=== PATIENT | female | born 1935 | race Caucasian/White ===

== ENCOUNTER 2019-12-08 17:20 | Emergency (ER) | payer MEDICARE, OTHER ==
[~2019-12-08 17:20] MED LIST: Iopamidol-370 76% 500 ML 1 ML ONE
[2019-12-08 17:40] LABS: #Lymphocytes 0.9 thou/uL (1.20-3.40); #Monocytes 0.7 thou/uL (0.11-0.59); #Neutrophils 11.3 thou/uL (1.40-6.50); %Basophils 0.2 % (0.0-1.0); %Eosinophils 0.4 % (0.0-10.0); %Lymphocytes 6.9 % (21.0-51.0); %Monocytes 5.7 % (0.0-10.0); %Neutrophils 86.8 % (42.0-75.0); Hemoglobin 13.4 g/dL (12.0-16.0); Mean Corpuscular HGB CONC 32.6 g/dL (32.0-36.0); Mean Corpuscular Hemoglobin 29.2 pg (27.0-31.0); Mean Corpuscular Volume 89.6 fL (78.0-98.0); Mean Platelet Volume 7.2 fL (7.4-10.4); Platelet Count 405 thou/uL (130-400); RBC Distribution Width 12.5 % (11.5-14.5); Red Blood Cell (RBC) Count 4.57 mill/uL (4.20-5.40)
[2019-12-08 17:46] LABS: INR-International Normal Ratio 1.2; PTT 25.1 sec (22.9-36.1); Prothrombin Time 14.7 sec (12.0-14.7)
--- NOTE | 2019-12-08 17:55 | CT ---
CT BRAIN WITHOUT CONTRAST: 12/08/19 HISTORY: Aphasia, right sided weakness, left sided gaze deviation. COMPARISON: Comparison is made with exam of 08/12/2011. FINDINGS: There is subtle hypodensity in the left insula and the left occipital lobe. No hemorrhage, midline sh ift, or abnormal extra-axial fluid collections are seen. The ventricular size is appropriate and the basilar cisterns patent. The bony calvarium is intact. There is mild mucosal disease in the paranasal sinuses. IMPRESSION: Findings are suspicious for acute infarction in the left insula and the left occipital lobe. Discussed over the telephone with ER physician Dr. Carlos Ogden at 5:31 p.m. POS: SHU
[2019-12-08 17:57] LABS: ALT (SGPT) Less than 7 U/L (8-55); AST (SGOT) 15 U/L (5-34); Albumin 3.7 g/dL (3.4-4.8); Alkaline Phosphatase 79 U/L (40-110); Anion Gap 17 mmol/L (10-20); BUN (Urea Nitrogen) 10 mg/dL (9.8-20.1); CK (CPK) 30 U/L (29-168); Calc. Creatinine Clearance 0 mL/min (70-130); Calcium 8.9 mg/dL (7.8-10.44); Carbon Dioxide 18 mmol/L (23-31); Chloride 107 mmol/L (98-107); Estimated GFR-MDRD 48; Globulin 2.4 g/dL (2.4-3.5); Glucose 175 mg/dL (83-110); Lipase 28 U/L (8-78); Magnesium 1.9 mg/dL (1.6-2.6); Potassium 4.1 mmol/L (3.5-5.1); Protein, Total 6.1 g/dL (6.0-8.3); Sodium 138 mmol/L (136-145)
--- NOTE | 2019-12-08 18:02 | CT ---
CT angiogram head CT angiogram neck: 12/08/2019 COMPARISON: None HISTORY: Altered mental status, dementia, aphasia TECHNIQUE: Axial CT imaging obtained at 1.25 mm intervals from the lung apices through the vertex wit h IV contrast. Coronal and sagittal 3-D reformatted imaging obtained FINDINGS: The visualized lung apices appear unremarkable. The paranasal sinuses and mastoid air cells demonstrate wall thickening and partial opacification of the left sphenoid sinus suggesting chronic sinusitis. The retroantral fat and the parapharyngeal fat appears clear bilaterally. The parotid glands and the submandibular glands appear grossly unremar kable. Multiple hypodense nodules are noted within the thyroid gland measuring up to 1.5 cm. Follow-up thyroid ultrasound suggested. Tonsillar pillars, epiglottis and preepiglottic fat, hyoid bone, thyroid cartilage, cricoid cartilage , and level of the glottis appear unremarkable. The origin of the innominate artery, right subclavian artery, right common carotid artery, left commo n carotid artery, and left subclavian artery appears unremarkable. There is a focal area of high-grade stenosis at the origin of the right vertebral artery. The right vertebral artery appears o therwise unremarkable. The left vertebral artery appears unremarkable. On the basis of NASCET criteria, there is no hemodynamically significant stenosis involving the commo n carotid artery on either side. There is a medialized course of the proximal right common carotid artery posterior to the trachea at the axial level of the thyroid gland. On the basis of NASCET criteria there is no hemodynamically significant stenosis involving the internal combustion engineer al carotid artery on either side. The mid and distal ICA appears tortuous bilaterally. The A1 segment, anterior communicating artery, and distal JORGE branches appear unremarkable bilaterall y. The M1 segment appears patent bilaterally. There is a focal area of M2 arterial occlusion within the anterior aspect of the sylvian fissure on the left, best appreciated on axial image 210, coronal image 40, and sagittal image 65. Distal MCA branches on the left appear otherwise unremarkable. Distal MCA branches on the right are g rossly unremarkable. The basilar artery and its branches appear patent with no posterior fossa/posterior circulation high-grade stenosis, vascular occlusion, or saccular aneurysm. The osseous structures demonstrate scattered areas of cervical spine degenerative change, most promin ent at C4-5. No worrisome lytic or blastic bone lesion. No lymphadenopathy is apparent within the neck. IMPRESSION: Left-sided proximal M2 arterial thrombus. Results called to Dr. Ogden at 5:55 PM 020
[2019-12-08] MEDS ORDERED: Aspirin 300 MG Suppository ONE (18:16)
--- NOTE | 2019-12-08 18:30 | RAD ---
PORTABLE CHEST ONE VIEW: 12/08/19 at 6:06 p.m. HISTORY: Stroke. FINDINGS: Comparison made with exam of 08/12/11. The heart size is borderline. The aorta is tortuous. No focal areas of consolidation, pneumothoraces or pleural effusions are seen. A hiatal hernia is again noted. IMPRESSION: No acute process. POS: ALDOA
--- NOTE | 2019-12-12 12:22 | EKG ---
Test Reason : Blood Pressure : / mmHG Vent. Rate : 074 BPM Atrial Rate : 074 BPM P-R Int : 240 ms QRS Dur : 084 ms QT Int : 440 ms P-R-T Axes : 050 -21 -64 degrees QTc Int : 488 ms Sinus rhythm with 1st degree A-V block Abnormal ECG Confirmed by HAZEL OSBORNE ([id number]), medical editor HIREN GUTIÉRREZ ([id number]) on 12/12/2019 12:21:39 PM Referred By: Confirmed By:HAZEL OSBORNE
--- NOTE | 2019-12-15 16:30 | CT ---
CT angiogram head CT angiogram neck: 12/08/2019 COMPARISON: None HISTORY: Altered mental status, dementia, aphasia TECHNIQUE: Axial CT imaging obtained at 1.25 mm intervals from the lung apices through the vertex wit h IV contrast. Coronal and sagittal 3-D reformatted imaging obtained FINDINGS: The visualized lung apices appear unremarkable. The paranasal sinuses and mastoid air cells demonstrate wall thickening and partial opacification of the left sphenoid sinus suggesting chronic sinusitis. The retroantral fat and the parapharyngeal fat appears clear bilaterally. The parotid glands and the submandibular glands appear grossly unremar kable. Multiple hypodense nodules are noted within the thyroid gland measuring up to 1.5 cm. Follow-up thyroid ultrasound suggested. Tonsillar pillars, epiglottis and preepiglottic fat, hyoid bone, thyroid cartilage, cricoid cartilage , and level of the glottis appear unremarkable. The origin of the innominate artery, right subclavian artery, right common carotid artery, left commo n carotid artery, and left subclavian artery appears unremarkable. There is a focal area of high-grade stenosis at the origin of the right vertebral artery. The right vertebral artery appears o therwise unremarkable. The left vertebral artery appears unremarkable. On the basis of NASCET criteria, there is no hemodynamically significant stenosis involving the commo n carotid artery on either side. There is a medialized course of the proximal right common carotid artery posterior to the trachea at the axial level of the thyroid gland. On the basis of NASCET criteria there is no hemodynamically significant stenosis involving the recruitment internship al carotid artery on either side. The mid and distal ICA appears tortuous bilaterally. The A1 segment, anterior communicating artery, and distal JORGE branches appear unremarkable bilaterall y. The M1 segment appears patent bilaterally. There is a focal area of M2 arterial occlusion within the anterior aspect of the sylvian fissure on the left, best appreciated on axial image 210, coronal image 40, and sagittal image 65. Distal MCA branches on the left appear otherwise unremarkable. Distal MCA branches on the right are g rossly unremarkable. The basilar artery and its branches appear patent with no posterior fossa/posterior circulation high-grade stenosis, vascular occlusion, or saccular aneurysm. The osseous structures demonstrate scattered areas of cervical spine degenerative change, most promin ent at C4-5. No worrisome lytic or blastic bone lesion. No lymphadenopathy is apparent within the neck. IMPRESSION: Left-sided proximal M2 arterial thrombus. Results called to Dr. Ogedn at 5:55 PM 020 Transcribed Date/Time: 12/15/2019 4:30 PM
== END 2019-12-08 17:52 | disposition short-term general hospital (02) ==
LOC: ERS 17:20
DX: I63.512 Cerebral infarction due to unspecified occlusion or stenosis of left middle cerebral artery (principal); E11.9 Type 2 diabetes mellitus without complications
CPT/HCPCS: 70450; 70496; 70498; 71045; 80053; 82550; 82553; 83690; 83735; 84484; 85025; 85610; 85730; 93005; Q9967

== ENCOUNTER 2020-05-13 11:56 | Inpatient (IN) | payer MEDICARE, OTHER ==
--- NOTE | 2020-05-13 14:13 | PDOC.FPRHP ---
- History of Present Illness Chief Complaint: fall History of Present Illness: This is an 85F transferred from [facility] after she fell at home. She lives with her and they have been without power since 05/11. They have been using their fireplace to stay warm. She got up to go to the bathroom but didn't take her flashlight and her found her on the ground at the opening of a hallway; he suspects she ran into the wall. She does not remember any of this. When her got to her she was trying to get up and stated her R shoulder hurt. He was not able to help her up and called EMS. When they arrived, she was found to be hypothermic with a T of 93.2F, hypotensive, tachycardic, and requiring CPap compared to her baseline of RA. At [facility], she was also found to have a WBC of 21 and LA of 7.3. Since she met SIRS criteria she was started on Rocephin and Azithromycin. CT head was neg, CXR neg, UA neg, so there is no clear source of infxn. On evaluation in this ED, she was found to be A&O x2, to self and date. She denies pain anywhere although she endorses and denies random sxs while her says she has not been complaining of anything lately. 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 Examples include asking about family members and not recognizing the house they have lived in for years. She has also been increasingly unsteady and had fallen 3 other times this week, although the pt denies feeling dizzy or off balance. After her stroke, she was receiving PT/OT/SKILL TRAINING PROGRAM COORDINATOR at home but that was d/c before [place] d/t the pt not wanting to participate anymore. She stopped taking a medication 2-3 weeks ago, that her thinks was a blood thinner b/c of her stroke, although he does not remember what it was called. She was found to have an indeterminate trop of 0.115. Denies CP/chest discomfort/SOB. EKG shows possible, age-indeterminate, inferior infarct but is otherwise normal. ED Course: [facility]: Levophed gtt, Rocephin, Azithro, Mg sulfate, ASA, duoneb, 2.5L NS bolus - History PMHx: T2DM, CVA in 11/2019 PSHx: appendectomy, hysterectomy, cholecystectomy Social: lives with . Smoked 1ppd x "a few years". Denies alcohol, drug use. - Review of Systems ROS unobtainable: due to mental status (Difficult to ascertain truth of endorsements and denials d/t mental status) - Vital signs BP: 95/59, MAP: 71, Pulse: 96, Resp: 18, Temp: 96.1 (Criticore Temp), Pain: 0, O2 sat: 98 on (2L Oxygen) - Physical Exam Constitutional: NAD -Constitutional: Awake, alert, oriented only to self and location. HEENT: normocephalic and atraumatic, PERRLA, EOMI, conjunctiva clear, grossly normal vision, grossly normal hearing -HEENT: Mucosa dry Neck: supple Chest: no-tender to palpation, no lesions Heart: RRR, normal S1/S2, no murmurs/rubs/gallops -Heart: Mildly pitting edema of BLE Lungs: CTAB, no respiratory distress, good air movement Abdomen: soft, non-tender, bowel sounds present Musculoskeletal: normal structure, normal tone, ROM grossly normal Neurological: no focal deficit, CN II-XII intact -Neurological: 5/5 strength of BUE and BLE Skin: no rash/lesions -Skin: No visible bruises/injuries to head, chest, abdomen, back, anterior legs, arms Heme/Lymphatic: no unusual bruising or bleeding, no purpura, no petechia Psychiatric: normal mood and affect FMR H&P: Results - Labs Lab results: WBC 21 LA 7.3 Trop 0.115 BUN 13, Cr 1.36, eGFR 40 - EKG Interpretation EKG: possible age-indeterminate inferior infarct, low QRS voltage, NSR - Radiology Interpretation CT scan - head Status: report reviewed by me (no acute intracranial findings) Chest x-ray Status: report reviewed by me (no acute cardiopulmonary changes) FMR H&P: A/P - Plan This is an 85F brought from [facility] for SIRS criteria Hypoxic resp failure, resolved Suspect 2/2 poor effort in setting of hypothermia - Required CPap for EMS. Now satting in 90s on RA - Baseline O2 requirement: RA - CXR neg, lungs clear on exam Hypothermia, resolved - T 93.2F at [facility] > 97F - s/p nura hugger, warm fluids, blankets SIRS criteria 2/2 hypothermia vs gastroenteritis Suspect the following were 2/2 hypothermia - Hypotensive, tachycardic, hypothermic on EMS arrival, resolved by arrival to this ED - s/p Levophed gtt, Mg sulfate, ASA, Rocephin, Azithro, 2.5L NS at [facility] * BCx ordered s/p first dose of abx - WBC 21 - LA 7.3 > repeat pending - CXR, CT head, UA neg - Has had multiple loose stools which could be a source of infxn * CDiff pathogen, E. coli and Campylobacter stool cultures, and stool O&P (given boil order throughout [facility]) pending - Continue Rocephin and Azithro pending r/o of infxn - mIVF: LR 130mL/h. Consider bolus if BPs soft - Procal pending Elevated trops - Trop 0.115 > repeat pending - EKG showed age-indeterminate possible inferior infarct > repeat pending - Pt denies sxs at this time - Cards, Robert, consulted - Suspect this is 2/2 demand from hypothermia/hypotension, therefore will hold off on anticoag unless EKG changes or pt develops sxs Hx of CVA - Nov. - Declining mentation since then, but no other residual deficits, per - A&O x2 to self and location on eval - CT head shows no intracranial abnormalities - Pt only on ASA. Continue - PT/OT/SKILL TRAINING PROGRAM COORDINATOR/CM evals pending - Strict bedrest; fall and swallow/aspiration precautions Hx of T2DM - Pt reportedly not on any medications - A1c pending - ACHS checks for now - Hypoglycemia protocol; CC diet Dispo: admit to inpt tele. Will continue to tx for possible sepsis until infectious source identified or r/o. Appreciate cards recs. eLOS >48hrs. IVF: 130mL/hr Diet: CC DVT ppx: SCDs PCP: Dr. Hathaway in [place] Code: Full FMR H&P: Upper Level - Plan Date/Time: 05/13/20 1411 Daniele Gray [id number], have evaluated this patient and agree with findings/plan as outlined by design engineering intern resident. Pertinent changes/additions are listed here. 85-year-old female who presents via transfer from [facility] for hypothermia. She has been without power in her house for about a week now and has been keeping warm by the fire. Today she went to the bathroom and after she did not return for 30 minutes her family went looking for her. She was found leaning against a wall. In [facility] she had core temp of 93.7 degrees and was given warm IV fluids and Nura hugger. She was also found hypoxic and was started on CPAP. She had a brain CT which was negative and chest x-ray which was also negative but was started on Rocephin and azithromycin for possible coverage of pneumonia. Since then an our emergency room she has recovered greatly. She is currently on 2 L of oxygen and temp has increased to 97 degrees. She is asymptomatic and has no complaints, no fever no chills no chest pain no GI complaints. On exam her temperature is 97.9, oxygen is 96% on RA, heart rate and respiratory rate normal. Her lungs are clear to auscultation bilaterally and heart has regular rate and rhythm with no murmurs, her mentation seems to be poor at baseline. A&O to person alone Assessment and plan Hypoxic respiratory failure, resolved Likely secondary to poor respiratory effort with hypothermia, she is stable on RA. Continue oxygen supplementation as necessary, reviewed chest x-ray and agree it is negative. We will continue antibiotics for the time being but will get procalcitonin and likely DC after it results. f/u BCx Sepsis 2/2 gastroenteritis vs. SIRS positive 2/2 hypothermia vitals have stabilized. no longer hypothermic or hypotensive (s/p levophed in [place]). Possible source is gastroenteritis, especially considering poor water quality of [facility] at this time. Will continue ABX as above for the time being and f/u on stool studies. Hypothermia Stable and improving. Continue Bear hugger as necessary. Hypovolemia Improving, patient is status post a few liters of IV fluids but still appears dry. Likely secondary to poor p.o. intake. We will give additional liter and continue maintenance fluids and encourage p.o. intake Elevated troponin Stable, Indeterminate value on presentation with normal EKG and asymptomatic patient. Repeat shows positive trop at 0.7. Will get repeat EKG and consult cardiology. Will give anticoagulation if EKG shows changes or pt develops symptoms. monitor on tele. frequent falls, found down Considering hx of pt seems to be declining in ambulatory status. Consult PT/OT, will get CK. Declining memory Noted on hx since her stroke in January, consult speech therapy for MOCA History of CVA MD noted Type 2 diabetes Continue home medications, Accu-Cheks and sliding scale insulin, consistent carb diet Code: Full, confirmed by Disposition: Inpatient, expect more than 2 midnights
[2020-05-13 15:43] LABS: CKMB 6.2 ng/mL (0-6.6)
[2020-05-13] MEDS ORDERED: Acetaminophen 650 MG Suppository ONE (17:34)
[2020-05-13 17:47] LABS: Lactic Acid 3.5 mmol/L (0.5-2.2)
[2020-05-13] MEDS ORDERED: Dextrose 5% in Water 1,000 ML IV PRN (19:36)
[2020-05-13] MEDS ORDERED: Acetaminophen 325 MG TAB PO PRN (19:36)
[2020-05-13] MEDS ORDERED: Lactated Ringer's 500 ML IV SCH (19:36)
[2020-05-13] MEDS ORDERED: Dextrose 50% Abboject 50 ML SYRINGE SLOW IVP PRN (19:36)
[2020-05-13] MEDS ORDERED: Ondansetron PF 4 MG/2 ML Vial IVP PRN (20:00)
[2020-05-13] MEDS ORDERED: Ondansetron ODT 4 MG TAB SL PRN (20:00)
[2020-05-13 20:32] LABS: Hemoglobin A1c 6.5 % (4.0-6.0)
[2020-05-13 22:18] LABS: Troponin I 1.539 ng/mL (< 0.028)
[2020-05-13] MEDS: Lactated Ringer's 1,000 ML IV SCH (22:47)
[2020-05-14] MEDS: Lactated Ringer's 1,000 ML IV SCH ×3 (01:44→18:27)
--- NOTE | 2020-05-14 05:25 | PDOC.FM ---
- Subjective Subjective: Patient is resting comfortably in bed. Per nurse, patient only had 200ml UO over past day after getting 3L fluid. Null irrigated and clear. She was given 500ml bolus, has had 150mL UO last 4 hours. Patient denied complaints however was very confused and unable to answer questions adequately. Per family she has good days and bad days and this is not unusual for bad days. - Objective MAR Reviewed: Yes Vital Signs & Weight: Vital Signs (12 hours) Temp Pulse Resp BP Pulse Ox 05/14/20 03:16 98.6 F 81 18 148/76 H 95 05/13/20 23:44 98.1 F 80 18 130/71 94 L 05/13/20 20:02 97.9 F 88 18 115/59 L 98 05/13/20 19:36 95 Weight Weight 79.515 kg Result Diagrams: 05/14/20 04:38 05/14/20 04:38 Phys Exam - Physical Examination Constitutional: NAD dry MM Respiratory: no wheezing, clear to auscultation bilateral Cardiovascular: RRR, no significant murmur Gastrointestinal: soft, non-tender trace edema b/l LE AxO to self only Skin: no rash Dx/Plan - Plan Plan: This is an 85F brought from [facility] for SIRS criteria Elevated troponin - NSTEMI II - Trop 0.115 > 0.735> 1.36 > 1.59> 1.790 > 1.607 - EKG showed age-indeterminate possible inferior infarct - Pt denies sxs at this time - Robert Cordero consulted - Echo ordered - Suspect this is 2/2 demand from hypothermia/hypotension, therefore will hold off on anticoag unless EKG changes or pt develops sxs SIRS criteria 2/2 hypothermia vs viral gastroenteritis Suspect the following were 2/2 hypothermia - Hypotensive, tachycardic, hypothermic on EMS arrival, resolved by arrival to this ED - s/p Levophed gtt, Mg sulfate, ASA, Rocephin, Azithro, 2.5L NS at [facility] * BCx ordered s/p first dose of abx, prelimary BCx negative - WBC 21 > 12.9 - LA 7.3 > 3.5 repeat today pending - CXR, CT head, UA neg - Has had multiple loose stools which could be a source of infxn * CDiff pathogen, E. coli and Campylobacter stool cultures, and stool O&P (given boil order throughout [facility]) all negative - Stopped Rocephin and Azithro - mIVF: LR 130mL/h. Hypoxic resp failure, resolved Suspect 2/2 poor effort in setting of hypothermia - Required CPAP for EMS. Now satting in 90s on RA - Baseline O2 requirement: RA - CXR neg, lungs clear on exam Hypothermia, resolved - T 93.2F at [facility] > 97F - s/p bear hugger, warm fluids, blankets Hx of CVA - Nov. - Declining mentation since then, but no other residual deficits, per - A&O x2 to self and location on eval - CT head shows no intracranial abnormalities - Pt only on ASA. Continue - PT/OT/TUFTER/CM evals pending - Strict bedrest; fall and swallow/aspiration precautions Hx of T2DM a1c 6.5 Pt reportedly not on any medications - ACHS checks for now - Hypoglycemia protocol; CC diet - mild SSI - consider SGLT2 inhibitor in outpatient as patient is allergic to metformin Dispo: admit to inpt tele. Appreciate Cards recsl. eLOS >48hrs. IVF: 130mL/hr Diet: CC DVT ppx: SCDs PCP: Dr. Hathaway in [place] Code: Full Addendum - Attending - Attending Attestation Date/Time: 05/14/20 0639 I personally evaluated the patient and discussed the management with Dr. Collins. I agree with the History, Examination, Assessment and Plan documented above with any addition or exceptions noted below. The patient's mentation waxes and wanes. Monitor urine output. Echo is pending. NSTEMI likely 2/2 demand from hypothermia. Stopping antibiotics as all cultures are negative to date including stool studies.
[2020-05-14 05:44] LABS: #Lymphocytes 1.4 thou/uL (1.20-3.40); #Monocytes 1.1 thou/uL (0.11-0.59); #Neutrophils 10.4 thou/uL (1.40-6.50); %Basophils 0.1 % (0.0-1.0); %Eosinophils 0.1 % (0.0-10.0); %Lymphocytes 10.6 % (21.0-51.0); %Monocytes 8.5 % (0.0-10.0); %Neutrophils 80.6 % (42.0-75.0); Hemoglobin 10.6 g/dL (12.0-16.0); Mean Corpuscular HGB CONC 33.2 g/dL (32.0-36.0); Mean Corpuscular Hemoglobin 29.7 pg (27.0-31.0); Mean Corpuscular Volume 89.5 fL (78.0-98.0); Mean Platelet Volume 7.6 fL (7.4-10.4); Platelet Count 260 thou/uL (130-400); RBC Distribution Width 12.8 % (11.5-14.5); Red Blood Cell (RBC) Count 3.57 mill/uL (4.20-5.40); White Blood Cell (WBC) Count 12.9 thou/uL (4.8-10.8)
[2020-05-14 06:13] LABS: Anion Gap 13 mmol/L (10-20); BUN (Urea Nitrogen) 19 mg/dL (9.8-20.1); Calc. Creatinine Clearance 47 mL/min (70-130); Calcium 8.5 mg/dL (7.8-10.44); Carbon Dioxide 19 mmol/L (23-31); Chloride 113 mmol/L (98-107); Glucose 124 mg/dL (83-110); Potassium 4.1 mmol/L (3.5-5.1); Sodium 141 mmol/L (136-145)
[2020-05-14 06:18] LABS: Critical Call Chem Troponin I RESULT DECREASING; Troponin I 1.607 ng/mL (< 0.028)
[2020-05-14] MEDS ORDERED: Lactated Ringer's 500 ML IV SCH (08:30)
[2020-05-14] MEDS ORDERED: cefTRIAXone\\ROCEPHIN 1 GM in Sodium Chloride 0.9% 100 ML IVPB SCH (09:00)
[2020-05-14] MEDS ORDERED: FLU VACC QS2020-21(65YR UP)/PF 240 MCG/0.7 ML SYRINGE IM ONE (09:00)
[2020-05-14] MEDS ORDERED: Azithromycin 250 MG TAB PO SCH (09:00)
--- NOTE | 2020-05-14 10:41 | PDOC.CPN ---
- Subjective Date: 05/14/20 Time: 09:00 Interval history: Resting comfortably. No overnight events. - Review of Systems General: reports: fatigue. denies: fever/chills, weight/appetite/sleep changes, night sweats Respiratory: denies: cough, congestion, shortness of breath, exercise intolerance Cardiovascular: denies: chest pain, palpitation, edema, paroxysmal nocturnal dyspnea, orthopnea Gastrointestinal: denies: nausea, vomiting, diarrhea, constipation, abd pain, GI bleeding Musculoskeletal: denies: pain, tenderness, stiffness, swelling, arthritis/ arthralgias Neurological: reports: weakness. denies: numbness, syncope, seizure - Objective Allergies/Adverse Reactions: Allergies Allergy/AdvReac Type Severity Reaction Status Date / Time codeine Allergy Verified 05/13/20 19:42 ibuprofen [From Motrin] Allergy Verified 05/13/20 19:42 metformin Allergy Verified 05/13/20 19:42 pravastatin Allergy Verified 05/13/20 19:42 Visit Medications: Current Medications Acetaminophen (Acetaminophen 325 Mg Tab) 650 mg PO Q4H PRN PRN Reason: Headache/Fever/Mild Pain (1-3) Azithromycin (Azithromycin 250 Mg Tab) 250 mg PO DAILY [facility] Stop: 05/17/20 09:01 Last Admin: 05/14/20 09:15 Dose: 250 mg Documented by: Dextrose/Water (Dextrose 50% Abboject 50 Ml Syringe) 25 gm SLOW IVP PRN PRN PRN Reason: Hypoglycemia Glucagon (Glucagon 1 Mg/Ml Vial) 1 mg IM PRN PRN PRN Reason: Hypoglycemia Dextrose/Water (D5w) 1,000 mls @ 0 mls/hr IV .Q0M PRN PRN Reason: Hypoglycemia Ceftriaxone Sodium 1 gm/ (Sodium Chloride) 100 mls @ 200 mls/hr IVPB Q24HR [facility] Last Admin: 05/14/20 09:16 Dose: 100 mls Documented by: Lactated Ringer's (Lactated Ringer's) 1,000 mls @ 130 mls/hr IV .Q7H42M [facility] Last Admin: 05/14/20 10:17 Dose: 1,000 mls Documented by: Sodium Chloride (Flush - Normal Saline 10 Ml Syringe) 10 ml IVF Q12HR [facility] Last Admin: 05/14/20 09:16 Dose: Not Given Documented by: Sodium Chloride (Flush - Normal Saline 10 Ml Syringe) 10 ml IVF PRN PRN PRN Reason: Saline Flush Vital Signs & Weight: Vital Signs Temp Pulse Resp BP Pulse Ox 05/14/20 09:20 95 05/14/20 09:05 98.6 F 74 15 152/80 H 95 05/14/20 03:16 98.6 F 81 18 148/76 H 95 05/13/20 23:44 98.1 F 80 18 130/71 94 L Weight 175 lb 4.8 oz - Physical Exam General: no apparent distress HEENT: mucus membranes moist Neck: supple neck Cardiac: regular rate and rhythm Lungs: clear to auscultation Abdomen: soft, non-tender Extremities: no edema Skin: clear - Labs Result Diagrams: 05/14/20 04:38 05/14/20 04:38 Troponin/CKMB CK-MB (CK-2) 6.2 ng/mL (0-6.6) 05/13/20 14:09 Troponin I 1.607 ng/mL (< 0.028) H* 05/14/20 04:38 - Assessment/Plan Assessment/Plan: 1. Elevated Trop - NSTEMI II 2. HTN 3. SIRS 4. Hypothermia 5. MS changes Will continue conservative care. ECHO pending. No changes for now. R05/14/2020 Pt seen and evaluated. Agree with above assessment. Pt oriented times two. EF low Will discuss cardiac issues with family. Reocmmend conservative treatment for now Will need lifevest chest stress test in am,
[2020-05-14] MEDS ORDERED: HumaLOG 300 UNITS/3 ML VIAL SC PRN ×2 (12:19)
[2020-05-15] MEDS: Lactated Ringer's 1,000 ML IV SCH ×2 (01:53→09:06)
[2020-05-15 04:54] LABS: Lactic Acid 1.2 mmol/L (0.5-2.2)
--- NOTE | 2020-05-15 05:43 | PDOC.FM ---
- Subjective Subjective: Patient is resting comfortably in bed. No concerns. AxO x3 today. She denies chest pain, shortness of breath, N/V, abdominal pain. - Objective MAR Reviewed: Yes Vital Signs & Weight: Vital Signs (12 hours) Temp Pulse Resp BP Pulse Ox 05/15/20 04:32 96 05/15/20 03:17 98.8 F 58 L 20 152/86 H 95 05/14/20 19:57 99.3 F 80 16 166/78 H 98 Weight Admit Weight 79.515 kg Weight 79.515 kg I&O: 05/13/20 05/14/20 05/15/20 06:59 06:59 06:59 Intake Total 1326 1980 Output Total 240 350 Balance 1086 1630 Result Diagrams: 05/14/20 04:38 05/14/20 04:38 Phys Exam - Physical Examination Constitutional: NAD HEENT: PERRLA, moist MMs Respiratory: no wheezing, clear to auscultation bilateral Cardiovascular: RRR, no significant murmur Gastrointestinal: soft, non-tender Musculoskeletal: no edema Neurological: non-focal Psychiatric: A&O x 3 Skin: no rash Dx/Plan - Plan Plan: his is an 85F brought [facility] for SIRS criteria Elevated troponin - Trop 0.115 > 0.735> 1.36 > 1.59> 1.790 > 1.607 - EKG showed age-indeterminate possible inferior infarct - Pt denies sxs at this time - Cards, Robert, consulted, appreciate recs - Echo ordered pre cards recs: EF 20-25%, with restrictive diastolic dysfunction - Suspect this is 2/2 demand from hypothermia/hypotension, however with recent echo, cardiology ordering stress today HFrEF New Dx Echo 05/14: EF 20-25% with restrictive diastolic dyfsunction - Cards consulted, appreciate recs - plan to get stress test today Hypothermia, resolved - Hypotensive, tachycardic, hypothermic on EMS arrival, resolved by arrival to this ED - s/p Levophed gtt, Mg sulfate, ASA, Rocephin, Azithro, 2.5L NS at [facility] * BCx ordered s/p first dose of abx -> negative - WBC 21 > 12.9 - LA 7.3 > 3.5 > 1.2 - CXR, CT head, UA neg - Has had multiple loose stools which could be a source of infxn * CDiff pathogen, E. coli and Campylobacter stool cultures, and stool O&P (given boil order throughout [facility]) all negative - Stopped Rocephin and Azithro on 05/14 - stop mIVF Hypoxic resp failure, resolved Suspect 2/2 poor effort in setting of hypothermia - Required CPAP for EMS. Now satting in 90s on RA - Baseline O2 requirement: RA - CXR neg, lungs clear on exam Hypothermia, resolved - T 93.2F at [facility] > 97F - s/p bear hugger, warm fluids, blankets Hx of CVA - Nov. - Declining mentation since then, but no other residual deficits, per - A&O x2 to self and location on eval - CT head shows no intracranial abnormalities - Pt only on ASA. 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 Appreciate Cards recsl. eLOS >48hrs. IVF: 130mL/hr Diet: CC DVT ppx: lovenox, APRYL 4 PCP: Dr. Hathaway in [place] Code: Full Addendum - Attending - Attending Attestation Date/Time: 05/15/20 2923 I personally evaluated the patient and discussed the management with Dr. Collins. I agree with the History, Examination, Assessment and Plan documented above with any addition or exceptions noted below. Echo revealed HF with reduced EF of 20-25%. Cardiology recommends stress test today. She is much more alert today.
--- NOTE | 2020-05-15 07:16 | CON ---
DATE OF CONSULTATION: 05/13/2020 REASON FOR CONSULTATION: Elevated troponin. HISTORY OF PRESENT ILLNESS: Ms. Pierce is an 85-year-old with no previous history of underlying coronary artery disease, who recently presented with hypothermia. Temperature was 93 degrees. She was confused and not oriented. She also complained of weakness. No chest pain, pressure, or other associated symptoms. The history is limited. She is currently not oriented. PAST MEDICAL HISTORY: Diabetes mellitus, previous CVA, appendectomy, hysterectomy, cholecystectomy. SOCIAL HISTORY: No current tobacco or alcohol use. She currently lives with her . HOME MEDICATIONS: Aspirin. REVIEW OF SYSTEMS: Difficult to obtain. PHYSICAL EXAMINATION: GENERAL: Patient is a pleasant female who is in no acute distress. The patient appears their stated age. VITAL SIGNS: Blood pressure 115/59, pulse 88, temperature 97.9. NEUROLOGIC: The patient is alert and oriented x3 with no focal neurologic deficits. HEENT: Sclerae without icterus. Mouth has moist mucous membranes with normal pallor. NECK: No JVD. Carotid upstroke brisk. No bruits bilaterally. LUNGS: Clear to auscultation with unlabored respirations. BACK: No scoliosis or kyphosis. CARDIAC: Regular rate and rhythm with normal S1 and S2. No S3 or S4 noted. No significant rubs, murmurs, thrills, or gallops noted throughout the precordium. PMI is not displaced. There is no parasternal heave. ABDOMEN: Soft, nontender, nondistended. No peritoneal signs present. No hepatosplenomegaly. No abnormal striae. EXTREMITIES: 2+ femoral and 2+ dorsalis pedis pulses. No cyanosis, clubbing, or edema. SKIN: No gross abnormalities. PERTINENT LABORATORY DATA: Hemoglobin 10.6. Peak troponin 1.5. EKG: Normal sinus rhythm, no acute ST-T wave changes. No Sarmiento waves present. IMPRESSION: 1. Elevated troponin. 2. Hypothermia. 3. Diabetes mellitus. RECOMMENDATIONS: Stan's elevated troponin is secondary to demand ischemia from recent insult. This is not felt to be consistent with unstable angina. At this point, given no current symptoms, would continue with aspirin. I would recommend warming patient to reasonable level per hypothermic protocol. Recommend echo to assess her LVEF. Otherwise, would recommend continued conservative therapy. Job ID: [id number]
[2020-05-15] MEDS: Enoxaparin Sodium 40 MG/0.4 ML SYRINGE SC SCH (08:56)
[2020-05-15] MEDS ORDERED: ADENOSINE 60 MG/20 ML VIAL ONE (10:57)
--- NOTE | 2020-05-15 12:32 | PDOC.CPN ---
- Subjective Date: 05/15/20 Time: 09:10 Interval history: Patient without complaint. Does not speak much - Review of Systems ROS unobtainable: due to mental status - Objective Allergies/Adverse Reactions: Allergies Allergy/AdvReac Type Severity Reaction Status Date / Time codeine Allergy Verified 05/13/20 19:42 ibuprofen [From Motrin] Allergy Verified 05/13/20 19:42 metformin Allergy Verified 05/13/20 19:42 pravastatin Allergy Verified 05/13/20 19:42 Visit Medications: Current Medications Acetaminophen (Acetaminophen 325 Mg Tab) 650 mg PO Q4H PRN PRN Reason: Headache/Fever/Mild Pain (1-3) Dextrose/Water (Dextrose 50% Abboject 50 Ml Syringe) 25 gm SLOW IVP PRN PRN PRN Reason: Hypoglycemia Enoxaparin Sodium (Enoxaparin Sodium 40 Mg/0.4 Ml Syringe) 40 mg SC 0900 [facility] Last Admin: 05/15/20 08:56 Dose: 40 mg Documented by: Glucagon (Glucagon 1 Mg/Ml Vial) 1 mg IM PRN PRN PRN Reason: Hypoglycemia Dextrose/Water (D5w) 1,000 mls @ 0 mls/hr IV .Q0M PRN PRN Reason: Hypoglycemia Insulin Human Lispro (Humalog 300 Units/3 Ml Vial) 0 units SC .MILD SLIDING SCALE PRN PRN Reason: Mild Correctional Scale Insulin Human Lispro (Humalog 300 Units/3 Ml Vial) 0 units SC .BEDTIME SLIDING SC PRN PRN Reason: Bedtime Correctional Scale Sodium Chloride (Flush - Normal Saline 10 Ml Syringe) 10 ml IVF Q12HR [facility] Last Admin: 05/15/20 08:27 Dose: Not Given Documented by: Sodium Chloride (Flush - Normal Saline 10 Ml Syringe) 10 ml IVF PRN PRN PRN Reason: Saline Flush Vital Signs & Weight: Vital Signs Temp Pulse Resp BP Pulse Ox 05/15/20 11:30 97.7 F 65 18 144/87 H 92 L 05/15/20 08:36 97.9 F 72 14 136/65 96 05/15/20 04:32 96 05/15/20 03:17 98.8 F 58 L 20 152/86 H 95 Admit Weight 175 lb 4.8 oz Weight 182 lb 9.6 oz - Physical Exam General: alert & oriented x3, no apparent distress HEENT: mucus membranes moist Neck: supple neck Cardiac: regular rate and rhythm - Labs Result Diagrams: 05/14/20 04:38 05/14/20 04:38 Troponin/CKMB CK-MB (CK-2) 6.2 ng/mL (0-6.6) 05/13/20 14:09 Troponin I 1.607 ng/mL (< 0.028) H* 05/14/20 04:38 - Assessment/Plan Assessment/Plan: 1. Elevated Trop - NSTEMI II 2. HTN 3. SIRS 4. Hypothermia 5. MS changes 6. Acute systolic CHF EF 30%. Attempted to call to discuss care. No answer. Not sure patient is in correct MS to make decisions about angio, LifeVest, etc... Will try calling again. Will add Coreg, lisinopril and lasix. RG-05/15 EF 44% on recent stress test. scar to inferior wall. Recommend conservative treatment. Still mild confusion. Ok for DC in am if stable with OP fu LIfevest no indicated
[2020-05-15] MEDS ORDERED: Furosemide 40 MG/4 ML VIAL SLOW IVP SCH (12:45)
[2020-05-15] MEDS ORDERED: Lisinopril 2.5 MG TAB PO SCH (12:45)
[2020-05-15] MEDS: Carvedilol 3.125 MG TAB PO SCH (17:50)
--- NOTE | 2020-05-15 18:37 | NM ---
Nuclear medicine myocardial perfusion scan: 05/15/2020 COMPARISON: None HISTORY: Elevated troponin, history of coronary artery disease TECHNIQUE: SPECT imaging of the left ventricular myocardium obtained during stress and rest following the intravenous administration of 31.4 and 11.0mCi technetium 99 M labeled sestamibi respectively. FINDINGS: There is a fixed defect involving the cardiac apex, the lateral inferior wall, and the late ral wall at the base. No discrete reversible defect is seen. TID is 1.27. Left ventricular wall motion demonstrates diffuse hypokinesis, particularly of the inferior wall. End-diastolic volume is 116 mL and end systolic volume is 64 mL. Left ventricular ejection fraction is estimated at 44%. IMPRESSION: Fixed defect suggesting prior infarction. No reversible defect noted.
--- NOTE | 2020-05-16 06:13 | PDOC.FM ---
- Subjective Subjective: No acute overnight events. Feeling well this AM, no complaints. Denies chest pain, SOB, dizziness. - Objective Vital Signs & Weight: Vital Signs (12 hours) Temp Pulse Resp BP Pulse Ox 05/16/20 03:11 98 05/15/20 20:35 98.8 F 74 20 151/80 H 98 05/15/20 18:15 98.1 F 76 19 151/72 H 93 L Weight Admit Weight 79.515 kg Weight 82.826 kg I&O: 05/14/20 05/15/20 05/16/20 06:59 06:59 06:59 Intake Total 1326 2900 870 Output Total 407 247 5507 Balance 1086 1950 -580 Result Diagrams: 05/14/20 04:38 05/14/20 04:38 Phys Exam - Physical Examination Constitutional: NAD HEENT: moist MMs Neck: supple Respiratory: no wheezing, clear to auscultation bilateral Cardiovascular: RRR, no significant murmur Gastrointestinal: soft, non-tender Musculoskeletal: no edema, pulses present Neurological: moves all 4 limbs Psychiatric: normal affect Deviation from normal: A&O x2 - self, time Skin: normal turgor, cap refill <2 seconds Dx/Plan - Plan Plan: his is an 85F brought from [place] ED for SIRS criteria Elevated troponin - Trop 0.115 > 0.735> 1.36 > 1.59> 1.790 > 1.607 - EKG showed age-indeterminate possible inferior infarct - Pt denies sxs at this time - Gil, Robert, consulted, appreciate recs - Echo ordered pre cards recs: EF 20-25%, with restrictive diastolic dysfunction - Stress test with fixed defect, no reversible change - ok for DC if stable per cards 05/15 HFrEF New Dx Echo 05/14: EF 20-25% with restrictive diastolic dyfsunction; EF on stress 44% - Cards consulted, appreciate recs - see above Hypothermia, resolved - Hypotensive, tachycardic, hypothermic on EMS arrival, resolved by arrival to this ED - s/p Levophed gtt, Mg sulfate, ASA, Rocephin, Azithro, 2.5L NS at [place] ED * BCx ordered s/p first dose of abx -> negative - WBC 21 > 12.9 - LA 7.3 > 3.5 > 1.2 - CXR, CT head, UA neg - Has had multiple loose stools which could be a source of infxn * CDiff pathogen, E. coli and Campylobacter stool cultures, and stool O&P (given boil order throughout [facility]) all negative - Stopped Rocephin and Azithro on 05/14 - stop mIVF Hypoxic resp failure, resolved Suspect 2/2 poor effort in setting of hypothermia - Required CPAP for EMS. Now satting in 90s on RA - Baseline O2 requirement: RA - CXR neg, lungs clear on exam Hx of CVA - Nov. - Declining mentation since then, but no other residual deficits, per - A&O x2 to self and location on eval - CT head shows no intracranial abnormalities - Pt only on ASA. Continue - PT recommends rehab placement Hx of T2DM a1c 6.5 Pt reportedly not on any medications - ACHS checks for now - Hypoglycemia protocol; CC diet - mild SSI Dispo: admit to inpt tele. stable for discharge soon, PT recommends rehab placement. IVF: 130mL/hr Diet: CC DVT ppx: lovenox, APRYL 4 PCP: Dr. Hathaway in [place] Code: Full Addendum - Attending - Attending Attestation Date/Time: 05/16/20 1413 I personally evaluated the patient and discussed the management with Dr. Lopez. I agree with the History, Examination, Assessment and Plan documented above with any addition or exceptions noted below. Post acute screen placed. She is still confused although appears to be improving from previous notes. I do not feel she is safe to go home at this time and I don't feel she is decisional at this time. . Will contact patient's to discuss options.
[2020-05-16] MEDS: Lisinopril 2.5 MG TAB PO SCH (08:29)
[2020-05-16] MEDS: Furosemide 20 MG TAB PO SCH (08:30)
[2020-05-16] MEDS: Carvedilol 3.125 MG TAB PO SCH ×2 (08:30→16:49)
[2020-05-16] MEDS: Enoxaparin Sodium 40 MG/0.4 ML SYRINGE SC SCH (08:30)
--- NOTE | 2020-05-16 11:12 | PQF ---
CLINICAL DOCUMENTATION CLARIFICATION FORM: Dear Dr. Lopez Date: 05/16/20 Please exercise your independent, professional judgment in responding to the clarification form. Clinical indicators are provided on the bottom of this form for your review. Please check appropriate box(es): [ ] Sepsis due to: Due to: [ ] Device (please specify) [ ] Severe sepsis with associated acute organ dysfunction: [ ] Acute Respiratory Failure [ ] Acute Kidney injury w/o ATN [ ] Acute Kidney Injury w ATN [ ] Encephalopathy (metabolic) (septic) [ ] Disseminated Intravascular Coagulopathy (DIC) [ ] Hepatic Failure [ ] Additional/Other: please specify: [ ] Septic Shock [ x ] SIRS due to non-infectious process (please specify etiology) __likely due to hypothermia [ ] with organ dysfunction [ ] without organ dysfunction [ ] Other diagnosis [ ] Unable to determine In addition, please specify: Present on Admission (POA): [ ] Yes [ ] No [ ] Unable to determine For continuity of documentation, please document condition throughout progress notes and discharge summary. Thank You. To be completed by CDI/Coding staff for physician review: CLINICAL INDICATORS - SIGNS / SYMPTOMS / LABS / RESULTS AND LOCATION IN MR H&P PG 3 ([facility]): "SIRS CRITERIA" H&P PG 5: "SEPSIS 2/2 GASTROENTERITIS VS SIRS POSITIVE 2/2 HYPOTHERMIA" LACTATE INITIALLY 7.5 (ER NOTE) / LACTATE 05/13: 4.4 WBC 21 AT [facility]) / WBC 05/14: 12.9 BP 95/59 PULSE 96 RR 23 RISK FACTORS / RESULTS AND LOCATION IN MR MENTAL STATUS CHANGES (ER NOTE) DARK URINE IN LESTER CATH (ER NOTE) "FOUND TO BE HYPOTHERMIC WITH A T OF 93.2" (&[id number]) H/O DIABETES TREATMENTS / RESULTS AND LOCATION IN MR ANDREIHIYue AND AZITHROMYCIN ([id number]) LEVOPHED IN [facility] (H&P) IV NS BOLUS (H&P) BLOOD CULTURES 05/13 STOOL CULTURES/STOOL O&P 05/14 BEAR HUGGER FOR HYPOTHERMIA (H&P) CDS Signature: Lena Slater RN Phone #: [phone] Date: 05/16/20 This is a permanent part of the Medical Record [facility]
--- NOTE | 2020-05-16 11:42 | PQF ---
CLINICAL DOCUMENTATION CLARIFICATION FORM: Dear Dr. Lopez Date: 05/16/20 Please exercise your independent, professional judgment in responding to the clarification form. Clinical indicators are provided on the bottom of this form for your review. Please check appropriate box(es): HEART FAILURE: A. ACUITY [ x ] Acute [ ] Acute on Chronic [ ] Chronic B. TYPE: [ x ] Systolic / HFrEF [ ] Diastolic / HFpEF [ ] Combined Systolic / Diastolic [ ] Hypertensive Heart and Kidney disease [ ] Hypertensive Heart Disease [ ] Hypertensive Kidney Disease [ ] Other diagnosis [ ] Unable to determine In addition, please specify: Present on Admission (POA): [ ] Yes [ ] No [ ] Unable to determine For continuity of documentation, please document condition throughout progress notes and discharge summary. Thank You. To be completed by CDI/Coding staff for physician review: CLINICAL INDICATORS - SIGNS / SYMPTOMS / LABS / RESULTS AND LOCATION IN EMR ECHOCARDIOGRAM 05/14: "EJECTION FRACTION IS VISUALLY ESTIMATED AT 20-25 %" "RESTRICTIVE FILLING PATTERN, SUGGESTING RESTRICTIVE DIASTOLIC DYSFUNCTION" RISKS FACTORS / RESULTS AND LOCATION IN EMR ADVANCED AGE H/O CVA (H&P) H/O DIABETES (H&P) NSTEMI 2 (PN 05/14- [facility]) TREATMENTS / RESULTS AND LOCATION IN EMR ECHOCARDIOGRAM 05/14 CARDIOLOGY CONSULT TELEMETRY MONITORING COREG (05/15-PRESENT) ZESTRIL (05/15) IV LASIX (05/15) PO LASIX (START 05/16) WILL NEED LIFEVEST (PN- [facility] 05/14) CDS Signature: Lena Slater RN Phone #: [phone] Date: 05/16/20 This is a permanent part of the Medical Record [facility]
--- NOTE | 2020-05-16 11:47 | PDOC.CPN ---
- Subjective Date: 05/16/20 Time: 11:46 Interval history: Chart and tele reviewed. No overnight events. - Review of Systems ROS unobtainable: due to mental status - Objective Allergies/Adverse Reactions: Allergies Allergy/AdvReac Type Severity Reaction Status Date / Time codeine Allergy Verified 05/13/20 19:42 ibuprofen [From Motrin] Allergy Verified 05/13/20 19:42 metformin Allergy Verified 05/13/20 19:42 pravastatin Allergy Verified 05/13/20 19:42 Visit Medications: Current Medications Acetaminophen (Acetaminophen 325 Mg Tab) 650 mg PO Q4H PRN PRN Reason: Headache/Fever/Mild Pain (1-3) Carvedilol (Carvedilol 3.125 Mg Tab) 6.25 mg PO BID-[facility] Dextrose/Water (Dextrose 50% Abboject 50 Ml Syringe) 25 gm SLOW IVP PRN PRN PRN Reason: Hypoglycemia Enoxaparin Sodium (Enoxaparin Sodium 40 Mg/0.4 Ml Syringe) 40 mg SC 0900 [facility] Last Admin: 05/16/20 08:30 Dose: 40 mg Documented by: Furosemide (Furosemide 20 Mg Tab) 20 mg PO DAILY [facility] Last Admin: 05/16/20 08:30 Dose: 20 mg Documented by: Glucagon (Glucagon 1 Mg/Ml Vial) 1 mg IM PRN PRN PRN Reason: Hypoglycemia Dextrose/Water (D5w) 1,000 mls @ 0 mls/hr IV .Q0M PRN PRN Reason: Hypoglycemia Insulin Human Lispro (Humalog 300 Units/3 Ml Vial) 0 units SC .MILD SLIDING SCALE PRN PRN Reason: Mild Correctional Scale Insulin Human Lispro (Humalog 300 Units/3 Ml Vial) 0 units SC .BEDTIME SLIDING SC PRN PRN Reason: Bedtime Correctional Scale Lisinopril (Lisinopril 2.5 Mg Tab) 2.5 mg PO DAILY [facility] Last Admin: 05/16/20 08:29 Dose: 2.5 mg Documented by: Sodium Chloride (Flush - Normal Saline 10 Ml Syringe) 10 ml IVF Q12HR [facility] Last Admin: 05/16/20 08:30 Dose: 10 ml Documented by: Sodium Chloride (Flush - Normal Saline 10 Ml Syringe) 10 ml IVF PRN PRN PRN Reason: Saline Flush Vital Signs & Weight: Vital Signs Temp Pulse Resp BP Pulse Ox 05/16/20 11:28 98.1 F 68 18 149/70 H 99 05/16/20 07:40 98.5 F 71 18 138/63 97 05/16/20 03:11 98 Admit Weight 175 lb 4.8 oz Weight 173 lb 12.8 oz - Labs Result Diagrams: 05/14/20 04:38 05/14/20 04:38 Troponin/CKMB CK-MB (CK-2) 6.2 ng/mL (0-6.6) 05/13/20 14:09 Troponin I 1.607 ng/mL (< 0.028) H* 05/14/20 04:38 - Assessment/Plan Assessment/Plan: 1. Elevated Trop - NSTEMI II 2. HTN 3. SIRS 4. Hypothermia 5. MS changes 6. Acute systolic CHF Conservative care and chemical code only per . Previously encouraged DNR. Needs to be readdressed. Continue lasix, HUONG, Coreg. Will increase Coreg given HTN. Will see PRN and ok for discharge once placement arranged.
--- NOTE | 2020-05-17 06:57 | PDOC.FM ---
- Subjective Subjective: No acute overnight events. Feeling well. Expresses she would like to go home, unsure if she would be willing to go to rehab. She is somewhat disoriented this AM. - Objective Vital Signs & Weight: Vital Signs (12 hours) Temp Pulse Resp BP Pulse Ox 05/17/20 03:35 97.5 F L 68 18 134/70 93 L 05/16/20 20:45 98.2 F 73 18 139/65 95 Weight Admit Weight 79.515 kg Weight 77.678 kg I&O: 05/15/20 05/16/20 05/17/20 06:59 06:59 06:59 Intake Total 2900 980 480 Output Total 950 3200 1250 Balance 1950 2220 770 Result Diagrams: 05/14/20 04:38 05/14/20 04:38 Phys Exam - Physical Examination Constitutional: NAD HEENT: moist MMs Neck: supple Respiratory: no wheezing, no rales, clear to auscultation bilateral Cardiovascular: RRR, no significant murmur Gastrointestinal: soft, non-tender, no distention Musculoskeletal: no edema, pulses present Neurological: moves all 4 limbs Deviation from normal: A&O x 2 - self, time; not oriented to location Skin: normal turgor Dx/Plan - Plan Plan: his is an 85F brought from [place] ED for SIRS criteria Elevated troponin - Trop 0.115 > 0.735> 1.36 > 1.59> 1.790 > 1.607 - EKG showed age-indeterminate possible inferior infarct - Pt denies sxs at this time - Robert Cordero, consulted, appreciate recs - Echo ordered pre cards recs: EF 20-25%, with restrictive diastolic dysfunction - Stress test with fixed defect, no reversible change - ok for DC if stable per cards 05/15 Physical deconditioning Likely due to age, hospitalization, stroke in 11/2019. - PT/OT recommend rehab vs SNU - consulted CM for assistance with placement - readdress pt goals later this AM when more oriented HFrEF New Dx Echo 05/14: EF 20-25% with restrictive diastolic dyfsunction; EF on stress 44% - Cards consulted, appreciate recs - see above Hypothermia, resolved - Hypotensive, tachycardic, hypothermic on EMS arrival, resolved by arrival to this ED - s/p Levophed gtt, Mg sulfate, ASA, Rocephin, Azithro, 2.5L NS at [place] ED * BCx ordered s/p first dose of abx -> negative - WBC 21 > 12.9 - LA 7.3 > 3.5 > 1.2 - CXR, CT head, UA neg - Has had multiple loose stools which could be a source of infxn * CDiff pathogen, E. coli and Campylobacter stool cultures, and stool O&P (given boil order throughout [facility]) all negative - Stopped Rocephin and Azithro on 05/14 - stop mIVF Hypoxic resp failure, resolved Suspect 2/2 poor effort in setting of hypothermia - Required CPAP for EMS. Now satting in 90s on RA - Baseline O2 requirement: RA - CXR neg, lungs clear on exam Hx of CVA - Nov. - Declining mentation since then, but no other residual deficits, per - A&O x2 to self and location on eval - CT head shows no intracranial abnormalities - Pt only on ASA. Continue - PT recommends rehab placement Hx of T2DM a1c 6.5 Pt reportedly not on any medications - ACHS checks for now - Hypoglycemia protocol; CC diet - mild SSI Dispo: admit to inpt tele. stable for discharge, PT recommends rehab placement. IVF: SL Diet: CC DVT ppx: lovenox, APRYL 4 PCP: Dr. Hathaway in [place] Code: Full Addendum - Attending - Attending Attestation Date/Time: 05/17/20 1662 I personally evaluated the patient and discussed the management with Dr. Lopez. I agree with the History, Examination, Assessment and Plan documented above with any addition or exceptions noted below. improving mentation but would still benefit from swingbed/rehab. will talk with today and begin arranging this.
[2020-05-17] MEDS: Carvedilol 3.125 MG TAB PO SCH (09:16)
[2020-05-17] MEDS: Lisinopril 2.5 MG TAB PO SCH (09:17)
[2020-05-17] MEDS: Enoxaparin Sodium 40 MG/0.4 ML SYRINGE SC SCH (09:17)
[2020-05-17] MEDS: Furosemide 20 MG TAB PO SCH (09:17)
[2020-05-17 11:30] VITALS: BP 126/67; TEMP 98.1
[2020-05-17 13:16] VITALS: BMI 26.8
[2020-05-17] MEDS ORDERED: Carvedilol 6.25 MG TAB PO SCH (17:00)
[2020-05-17] MEDS ORDERED: Mirtazapine 15 MG TAB PO SCH (21:00)
== END 2020-05-17 14:32 | DRG 922 ==
LOC: ERS 11:56 → 2NO 16:50
PROVIDERS: ADMIT Family Medicine; ATTEND Family Medicine
PROC: 8E0ZXY6 Isolation (ICD-10-PCS; principal; 2020-05-13)
DX: T68.XXXA Hypothermia, initial encounter (principal); I50.21 Acute systolic (congestive) heart failure; I21.A1 Myocardial infarction type 2; J96.91 Respiratory failure, unspecified with hypoxia; R65.10 Systemic inflammatory response syndrome (SIRS) of non-infectious origin without acute organ dysfunction; E11.9 Type 2 diabetes mellitus without complications; Z20.822 Contact with and (suspected) exposure to COVID-19; F17.210 Nicotine dependence, cigarettes, uncomplicated; R29.6 Repeated falls; Z86.73 Personal history of transient ischemic attack (TIA), and cerebral infarction without residual deficits; Z79.899 Other long term (current) drug therapy; Z90.79 Acquired absence of other genital organ(s); Z90.710 Acquired absence of both cervix and uterus; Z88.6 Allergy status to analgesic agent; Z88.8 Allergy status to other drugs, medicaments and biological substances; Z79.82 Long term (current) use of aspirin
CPT/HCPCS: 36415; 36416; 78452; 80048; 82553; 83036; 83605; 84484; 85025; 87040; 87045; 87046; 87324; 87427; 87449; 93005; 93017; 93306; 94760; A9500; J0153; J0696; J1650; J1940; J3490

== ENCOUNTER 2022-09-24 16:19 | Emergency (ER) | payer MEDICARE ==
[2022-09-24 17:09] LABS: #Basophils 0.1 thou/uL (0.0-0.2); #Eosinphils 0.1 thou/uL (0.0-0.7); #Monocytes 1.1 thou/uL (0.11-0.59); #Neutrophils 6.8 thou/uL (1.40-6.50); %Basophils 0.7 % (0.0-1.0); %Eosinophils 1.3 % (0.0-10.0); %Lymphocytes 16.5 % (21.0-51.0); %Monocytes 11.1 % (0.0-10.0); %Neutrophils 70.1 % (42.0-75.0); Hemoglobin 9.9 g/dL (12.0-16.0); Mean Corpuscular Hemoglobin 26.8 pg (27.0-31.0); Mean Corpuscular Volume 83.5 fl (78.0-98.0); Mean Platelet Volume 9.5 fL (7.4-10.4); Platelet Count 380 10x3/uL (130-400); RBC Distribution Width 15.4 % (11.5-14.5); White Blood Cell (WBC) Count 9.6 10x3/uL (4.8-10.8)
[2022-09-24 17:22] LABS: INR-International Normal Ratio 1.2; PTT 31.4 sec (22.9-36.1); Prothrombin Time 16.1 sec (12.0-14.7)
[2022-09-24 17:37] LABS: ALT (SGPT) Less than 7 U/L (8-55); AST (SGOT) 12 U/L (5-34); Albumin 3.5 g/dL (3.4-4.8); Alkaline Phosphatase 64 U/L (40-110); Anion Gap 11 mmol/L (10-20); BUN (Urea Nitrogen) 19 mg/dL (9.8-20.1); Bilirubin, Total 0.7 mg/dL (0.2-1.2); Calc. Creatinine Clearance 0 mL/min (70-130); Carbon Dioxide 22 mmol/L (23-31); Chloride 104 mmol/L (98-107); Estimated GFR 63; Globulin 2.6 g/dL (2.4-3.5); Glucose 93 mg/dL (83-110); Potassium 4.2 mmol/L (3.5-5.1); Protein, Total 6.1 g/dL (5.8-8.1); Sodium 133 mmol/L (136-145)
== END 2022-09-24 19:29 ==
LOC: ERS 16:19
DX: S06.6XAA Traumatic subarachnoid hemorrhage with loss of consciousness status unknown, initial encounter (principal); S06.5XAA Traumatic subdural hemorrhage with loss of consciousness status unknown, initial encounter; E11.9 Type 2 diabetes mellitus without complications; W18.30XA Fall on same level, unspecified, initial encounter
CPT/HCPCS: 36415; 70450; 80053; 85025; 85610; 85730; 93005